=== PATIENT | female | born 1980 | race Caucasian/White ===

== ENCOUNTER 2016-03-04 22:03 | Emergency (ER) | payer MEDICAID ==
[~2016-03-04] VITALS: Ht 149.9 cm; Wt 68.9 kg
[~2016-03-04 22:03] MED LIST: BUSPAR 10MG TAB10 MG PO; DIVALPROEX SOD500 MG PO; FLUOXETINE20 M2 FT; GABAPENTIN300 M1 PO; GABAPENTIN800 MG PO; HYDROCHLOROTH12.5 M1 PO; HYDROXYZINE PAM50 MG PO; IBU800 MG PO; OMEPRAZOLE20 MG PO; PERCOCET 325 MG1 TA4 PO; TRAZODONE HCL100 MG OR; TYLENOL W/CODEI1 TA2 PO
--- NOTE | 2016-03-04 22:41 | Emergency Room Report ---
History of Present Illness Time Seen by [id number] Presenting Problem in Triage Pt arrived:Walked Presenting Problem:DIARRHEA X3 WEEKS , ALSO HAS PAIN IN LOW BACK . Onset of symptoms date/time:02/12 or onset unknown for: Treatment Prior to Arrival: [facility] Provided by:PHYSICIAN Sepsis Risk Assessment: Temp: 98.7 B/P: 129/73 MAP: 91 Pulse: 91 Resp: 20 Recent fever? N Clinical Suspician of Infection? N Mental Status: 1 - Regular (Normal Baseline) Sepsis Risk:Possible Sepsis Risk Have you (or family members/close friends) recently traveled outside the [place]? N If Yes, where/when: Have you had exposure to infectious disease within the past month? N TB? Other? Specify: Source patient, RN notes reviewed, old records Exam Limitations no limitations Comment pt with diarrhea and vomiting with crampy abd pain over the last few weeks and saw pcp today - no blood in stool Cardiac Chest Pain Chest pain indicative of cardiac No Timing/Duration this evening Severity moderate ALLERGIES Coded Allergies: morphine (03/04/16) Home Medications Active Scripts OXYCODONE HCL/ACETAMINOPHEN (Percocet 7.5-325 MG Tablet) 1 TAB PO Q6HP PRN MODERATE TO SEVERE PAIN #30 TAB Prov: 09/01/14 Reported Medications Trazodone Hcl (Trazodone HCl) 100 MG OR QHS #30 DIVALPROEX SODIUM (Divalproex Sodium) 1,000 MG PO QHS #60 Gabapentin (Gabapentin 800MG) 800 MG PO BID #60 Omeprazole (Omeprazole 20MG) 20 MG PO DAILY #30 Buspirone Hcl (Buspar 10MG) 10 MG PO DAILY #30 Fluoxetine Hydrochloride (Fluoxetine) 20 MG FT TID #90 Ibuprofen (Ibu) 800 MG PO PRN PRN PAIN #60 History Medical History General Angina: No CO: No Hypertension? No Hyperlipidemia? No CHF? No COPD? No Asthma? No Hernia? No CVA? No Seizures? Yes Diabetes? No UTI? Yes Stones? No GB Disease: No Hepatitis? No Cataracts? No Glaucoma? No MRSA? No TB? No Cancer? No Immunization Hx DT/Tetanus 1-4 Years Ago Flu Refused Pneumonia Refuses Surgical Hx Previous Surgery?Y ORAL SURGERY DX [facility] RN Hx LMP N/A Family History Family Hx Diabetes No CAD Yes Hypertension Yes Hyperlipidemia Yes Cancer Yes TB No Social History Smoking Hx Smoker: Current Every Day Smoker Tobacco: Yes Type Cigarettes Packs/day < 1 Pack Alcohol Alcohol: No Drugs none Review of Systems All Other Systems Reviewed and Negative Constitutional denies fever Eyes denies drainage ENT denies: ear pain, epistaxis, throat pain. Respiratory denies cough, denies shortness of breath, denies wheezing Cardiovascular denies chest pain, denies palpitations, denies syncope Gastrointestinal see HPI, abdominal pain, diarrhea, nausea, vomiting Genitourinary denies: dysuria, frequency, hesitancy, hematuria. Musculoskeletal denies joint pain, denies joint swelling, denies neck pain Skin denies rash Psychiatric/Neurological denies headache, denies seizure Physical Exam Vital Signs Vital Signs Date Time Temp Pulse Resp B/P Pulse O2 O2 Flow FiO2 Ox Delivery Rate 03/05 0022 82 20 129/51 96 03/04 2211 98.7 91 20 129/73 98 - WBC >12,000 or <4,000 or 10% bands? 2 or more SIRS Criteria Met? B/P:129/51 MAP:91 Creatinine >2.0? UA output<0.5ml/kg/hr for 2 hrs? Platelet count >100,000? Lactate >2.0mmol/1? INR >1.2 or PTT > than 60 sec? Evidence of Organ Dysfunction? Provider documented clinical suspician of infection? N Sepsis Criteria Count: 2 Sepsis Risk: Possible Sepsis Risk General Appearance no apparent distress Eye Exam - bilateral eye PERRL, bilateral eye EOMI Ear, Nose, Throat normal ENT inspection Neck supple Respiratory Status No: respiratory distress. Lung Sounds bilateral: lungs clear. 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 No Results/Orders Laboratory Tests 03/04/16 2230: Sodium 139, Potassium 2.8 *L, Chloride 102, Carbon Dioxide 32, BUN 3 L, Creatinine 0.8, Estimated Creat Clear 108, Estimated GFR (MDRD) 82, Glucose 55 L, Calcium 8.9, Total Bilirubin 0.2, AST 13 L, ALT 16, Alkaline Phosphatase 91, Total Protein 7.0, Albumin 3.3 L, Globulin 3.7 H, Albumin/Globulin Ratio 0.9 L, WBC 9.1, RBC 4.47, Hgb 13.4, Hct 40.3, MCV 90.2, RDW 14.1, Plt Count 223, Gran % 68.2, Gran # 6.2, Lymphocytes % 26.1, Monocytes % 5.7, Lymphocytes # 2.4, Monocytes # 0.5, PUBS MCHC 33.3, MCH 30.0, Urine Color YELLOW, Urine Appearance CLEAR, Urine pH 6.0, Ur Specific Backus 1.020, Urine Protein NEGATIVE, Urine Ketones NEGATIVE, Urine Blood NEGATIVE, Urine Nitrate NEGATIVE, Urine Bilirubin NEGATIVE, Urine Urobilinogen 0.2, Ur Leukocyte Esterase NEGATIVE, Ur Squamous Epith Cells OCC, Urine Bacteria 1+, Urine Mucus 1+, Urine Glucose NEGATIVE Current Medication Orders Sig/Audrey Start time Last Medication Dose Route Stop Time Status Admin Sodium Chloride 10 ML PRN PRN 03/04 223 AC IV 03/05 2222 Sodium Chloride 1,000 ML .Q1H1M 03/04 223 DC 03/04 IV 03/04 2330 2241 Sodium Chloride 10 ML PRN PRN 03/04 2229 AC IV 03/05 2222 Sodium Chloride 1,000 ML .STK-MED ONE 03/04 2225 DC IV Orders Procedure Date/time Status DIET-NOTHING BY MOUTH 03/[address] ABD & PELVIS W/O CONTRAST 03/[address] SCAN REQ 03/04 2242 Complete URINE 03/04 2242 Complete DIARRHEA PANEL, PCR 03/04 2242 Active IV SALINE LOCK 03/04 2221 Active URINALYSIS/COMPLETE 03/04 2221 Complete CBC WITH AUTO DIFF 03/04 2221 Complete CHEM 12 PROFILE 03/04 2221 Complete XRAY/CT/US XRAY/CT/US CT abdomen, pelvis CT interpretation by discussed w/radiologist Time results known: 0056 CT Results abnormal (see report) Departure Departure Time of Disposition 0103 Disposition DC Home or Self Care(routine) Clinical Impression Primary Impression: Enteritis Condition STABLE Referrals Vivek Godwin (Family) Patient Instructions DI for Vomiting -- Adult Additional Instructions fluids and use probiotics and see pcp for follow up Discharge Counseling Counseled pt/family regarding diagnosis, test results, medications/RX, follow up needs ED Critical Care Critical Care No at 0106
[2016-03-04 23:37] LABS: HEMOGLOBIN 13.4 g/dL (12.2-16.2); LYMPH % 26.1 % (10-50.0)
[2016-03-04 23:38] LABS: LYMPH # 2.4 K/mm3 (0.7-4.5)
[2016-03-04 23:52] LABS: URINE BILIRUBIN - DIPSTICK NEGATIVE (NEG); URINE BLOOD NEGATIVE (NEG)
[2016-03-04 23:53] LABS: URINE SQUAMOUS CELLS OCC #/hpf (0-5)
[2016-03-05 01:22] VITALS: BP 107/54
--- NOTE | 2016-03-05 08:23 | RADIOLOGY REPORT PS360 ---
CT ABD PELVIS W/O CONTRAST CLINICAL INDICATION: Left lower quadrant pain and bilateral flank pain ABD PAIN COMPARISON: None TECHNIQUE: Axial images obtained with sagittal and coronal reformats. PROCEDURE: Oral Contrast: None IV Contrast: None . FINDINGS: Lower thorax: Diffuse groundglass density noted in both lower lung zones ABDOMEN: Liver: No masses or biliary dilatation. Gallbladder: Contracted gallbladder. No radio opaque stones Pancreas: No masses or peripancreatic fluid collections. Spleen: Unremarkable. Adrenals: Unremarkable Kidneys/ureters: No masses. No renal calculi. No hydronephrosis. No perinephric fluid collections. No ureteral dilatation or obvious ureteral calculi. PELVIS: Reproductive: Status post hysterectomy Bladder: Nondistended. No obvious stones or masses. Appendix: No evidence of appendicitis. ABDOMEN & PELVIS: Stomach bowel: There is mild diffuse thickening of the descending colon and could be due to nondistention or colitis. No evidence of diverticulitis. No intestinal obstruction or free air. Peritoneum: No abnormal fluid collections. No obvious inflammatory changes. No free air. Lymph nodes: No enlarged lymph nodes apparent. Vasculature: No evidence of abdominal aortic aneurysm. No retroperitoneal hemorrhage evident. 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 Thickening of the descending colon which may be due to lack of distention or colitis. 2. Diffuse groundglass density in both lower lung zones. Differential diagnosis would include low lung volumes with dependent changes, pulmonary edema, or diffuse pneumonitis
== END 2016-03-05 01:22 | disposition home or self-care (01) ==
LOC: ER 22:03
PROVIDERS: Emergency Medicine
DX: K52.9 Noninfective gastroenteritis and colitis, unspecified (principal); Z72.0 Tobacco use; M54.5 Low back pain